=== PATIENT | female | born 1990 | race Caucasian/White ===

== ENCOUNTER 2022-12-19 01:35 | Day surgery (SDC) | payer OTHER, SELFPAY ==
[2022-12-12 09:38] VITALS: BMI 23.8
--- NOTE | 2022-12-12 09:42 | PC.NURSE ---
Report to the Outpatient Waiting Room, entrance under the green pavilion located off [facility], at time 0600 on date 12/19/22. Planned Procedure Time: 0730. Time changes happen often and if your time is changed the preop area will call you the afternoon before. - You and your visitor will be asked to self-screen and do not enter if you have any COVID symptoms. - A mask is optional within the hospital at this time. Patients may have clear liquids (water, carbonated beverages, clear teas, apple juice) until 3 hours prior to surgery with a maximum of 20 ounces. - No food from midnight until time of surgery Take the following medications with a SIP of water the morning of surgery: HYDROXYZINE IF NEEDED DO NOT STOP ANY OF YOUR OTHER PRESCRIPTION MEDICATIONS PRIOR TO SURGERY EXCEPT THE FOLLOWING Medications to discontinue per physician: N/A Date to take last dose: N/A Please no make-up, nail guyanese, hairspray, perfume, deodorant, or body powder the day of surgery. No jewelry (including any body piercings) or valuables the day of surgery, leave them at home. Please take a shower or bath the night before, or the morning of, surgery with an antibacterial soap. Wear comfortable, loose fitting clothing. - Jewelry must be removed prior to entering the operating room. Rings and piercings that are not removed may be cut off. - The hospital will not accept responsibility for valuables. - Please leave all valuables, including medications, at home the day of surgery. If you are going home after surgery, a licensed boom truck driver must drive you home. - NO public transportation without another adult if you receive anesthesia. - We recommend that an adult stay with you for 24 hours following discharge. - We also recommend that you do not drive, make important decision, drink alcoholic beverages, or take any drugs that were not prescribed by your health care provider for at least 24 hours after your discharge time. Follow any additional instructions given to you from your surgeon. If you or anyone in your household have experienced Covid symptoms in the past week, please notify your surgeon or the nurse liaison at the phone number below for possible testing. Telephone instructions given to JORGE LUIS SANDOVAL and asked if any additional questions and then verbalized understanding. Patient advised to call surgeon office or pre surgery nurse liaison [phone] if any additional questions.
[2022-12-19] VITALS (8 sets, daily range): BP systolic 95–112; BP diastolic 63–79; PULSE 48–80; RESP 14–16; TEMP 36.1; O2SAT 98–100
[2022-12-19] MEDS: LACTATED RINGERS 1,000 ML 30 ML IV CONT ×2 (06:45→08:19)
[2022-12-19] MEDS: KETOROLAC 15 MG/ML VIAL (*BKC) IV PUSH (06:45)
[2022-12-19] MEDS: ACETAMINOPHEN 500 MG TABLET 1000 MG PO (06:45)
--- NOTE | 2022-12-19 07:03 | WPDANESEPPF ---
Anes - Initial Pre Proc Eval Procedure: Operation Date: 12/19/22 07:30 Proposed Procedures p Laparoscopic Bilateral Salpingectomy - Meghan Mayers MD Date/Time: 12/19/22 07:03 Surgeon: Meghan Mayers MD Pre Op Diagnosis: sterilization Patient Data Age: 32 Gender: F Height: 1.57 m Weight: 59 kg Allergies Allergy/AdvReac Type Severity Reaction Status Date / Time Penicillins Allergy Hives Verified 12/12/22 09:37 Home Medications Medication Instructions Recorded Confirmed Type hydroxyzine HCl 25 mg tablet 25 mg PO PRN PRN Anxiety 12/12/22 12/12/22 History Patient hx anesthesia problems: none Family hx anesthesia problems: none Results Review: All pre-operative results and documents have been reviewed as part of the pre-operative evaluation. [facility] Social History Social History Smoking status: Never smoker Alcohol intake: current Drinks per week: 2 Substance use: current Substance use type: marijuana Living arrangements: with family Spiritual care concerns: No Anes - Eval Final PreProcedure Day of Procedure 12/19/22 07:03 Patient weight: normal Heart: regular rate and rhythm Lungs: clear to auscultation and normal air movement Airway: Mallampati scale class II Neurological: alert and oriented Last oral intake: >/= 8 hours ASA classification: I Emergent: no Anesthetic plan: proceed Anesthesia type and monitoring: general GIVS Results Review: All pre-operative results and documents have been reviewed as part of the pre-operative evaluation. Informed Consent: The patient's anesthetic plan and its attendant risks and benefits were discussed with the patient/family/POA. Questions were solicited and answers provided to the satisfaction of the patient/family/POA.
--- NOTE | 2022-12-19 07:24 | P.HP_ITS ---
History of Present Illness History of Present Illness Consent: Risks, benefits, and alternatives have been discussed and questions answered. Patient agrees to proceed with procedure. Chief complaint: sterilization Narrative: Raven Tracy is a 32 year old female who has completed her childbearing and wishes to proceed with permanent sterilization. The risks of surgery including infection, bleeding, injury to internal organs, and general anesthesia were re viewed with the patient. In addition the patient is aware this is a permanent and irreversible sterilizing procedure. The patient was also informed of the rare risk of failure with increased risk of ectopic should a failure occur. Plan is to proceed with laparoscopic bilateral salpingectomies for sterilization. Review of Systems Review of Systems: not repeated day of surgery; patient states no changes in status PMFSH Past Medical History Medical History (Updated 12/19/22 @ 07:26 by Meghan Mayers MD) Anxiety and depression (normal spontaneous vaginal delivery) Surgical History Surgical History (Updated 12/19/22 @ 07:26 by Meghan Mayers MD) History of Social History Social History Smoking status: Never smoker Alcohol intake: current Drinks per week: 2 Substance use: current Substance use type: marijuana Living arrangements: with family Spiritual care concerns: No Meds Home Medications and Allergies Home Medications Medication Instructions Recorded Confirmed Type hydroxyzine HCl 25 mg tablet 25 mg PO PRN PRN Anxiety 12/12/22 12/12/22 History Allergies Allergy/AdvReac Type Severity Reaction Status Date / Time Penicillins Allergy Hives Verified 12/19/22 07:17 Vital Signs Vital Signs - 24 hr 12/19/22 07:13 Temperature 96.9 F L Pulse Rate 80 Respiratory Rate 14 Blood Pressure 98/63 L Pulse Oximetry 100 Oxygen Delivery Room Air Exam Const: General: healthy appearing and alert Orientation/consciousness: patient oriented x3 Resp: Effort & Inspection: normal respiratory effort GI: GI Palp: Yes Soft to palpation, No Tenderness to palpation present (GI) and No Palpable mass present : External Female Exam: normal external appearance Speculum Exam - Vagina: normal appearance of the vagina and normal vaginal discharge Speculum Exam - Cervix: normal appearance of the cervix Bimanual exam- vagina & uterus: uterine size normal and consistency normal Bimanual Exam- Adnexa, other: normal adnexae and No adnexal tenderness Neuro: General: patient oriented x3 Assessment and Plan Assessment and plan (1) Encounter for sterilization: Code(s): Z30.2 - Encounter for sterilization Status: Acute Assessment and Plan: plan to proceed with laparoscopic bilateral salpingectomies
--- NOTE | 2022-12-19 07:24 | WPDHPUPDATE1 ---
History and Physical Update Update Date/Time: 12/19/22 07:24 History and Physical has been reviewed, including an updated exam of the patient. There are NO changes in the patient's condition. Risks, benefits, and alternatives have been discussed and questions answered. Patient agrees to proceed with procedure.
--- NOTE | 2022-12-19 08:14 | P.OP_ITS ---
Procedure Note - Detailed Date of Procedure 12/19/22 Pre-op Diagnosis sterilization Post-op Diagnosis Same Procedure Performed laparoscopic bilateral salpingectomies Surgeon Meghan Mayers MD Anesthesia General Findings normal-appearing tubes, uterus, and ovaries Description of Procedure The patient is taken to the operating room and placed under anesthesia in the dorsal lithotomy position. She was prepped and draped in the usual sterile fashion. [place] speculum was placed in the vagina and the cervix grasped on the anterior lip with a tenaculum. The acorn manipulator was placed and the speculum removed. Bladder was drained with a red rubber catheter. The attention was then turned to the abdomen where a vertical skin incision was made at the base of the umbilicus. The abdomen is tented and the Veress needle placed. Water drop test is normal. Opening patient pressure was 5mmHg. Pneumoperitoneum was obtained to a patient pressure of 15mmHg. The Veress needle was removed and the 5mm Optiview trocar was placed while tenting the abdo men. Intra-abdominal placement was confirmed with the laparoscope. The patient is placed in Trendelenburg and a skin incision was made 2cm above the symphysis pubis to the left and to the right. 5Mm trocars were placed under direct visualization. A blunt probe was used to bring the tubes into operative field. The right tube was grasped with an atraumatic grasper. LigaSure was used to cauterize and cut the mesosalpinx. Once near the cornua, the tube was crossclamped,cauterized, and cut. The identical procedure was performed on the opposite side. Good hemostasis is noted at the pedicles. The pneumoperitoneum was reduced and the trocars removed. Skin incisions were closed using 4-0 nylon in interrupted fashion. Vaginal instruments are removed. The patient is awakened from anesthesia and taken to recovery in stable condition. Sponge, needle, and instrument counts are correct per the OR staff. Estimated Blood Loss 5 Drains No Packing No Pathology Yes ( Bilateral tubes) Complications No immediate complications Condition Stable Disposition PACU
[2022-12-19] MEDS: fentaNYL CITRATE INJ (*CRX) 100 MCG/2 ML VIAL 25 MCG IV PUSH ×2 (08:32→08:41)
[2022-12-19] MEDS: oxyCODONE HCL (*CRX) 5 MG TAB IR PO (09:32)
== END 2022-12-19 10:02 | disposition home or self-care (01) ==
PROVIDERS: PCP Hospitalist; Visit Provider Obstetrics & Gynecology Gynecology
PROC: (CPT 49320; principal; 2022-12-19 07:30)
DX: Z30.2 Encounter for sterilization (principal); F41.8 Other specified anxiety disorders
CPT/HCPCS: 58661; 88302; A9270; J1100; J1885; J2250; J2405; J2704; J3010; J7120